=== PATIENT | male | born 1985 | race Caucasian/White ===

== ENCOUNTER 2017-07-05 21:59 | Emergency (ER) | payer SELFPAY ==
[~2017-07-05] VITALS: Ht 172.7 cm; Wt 61.7 kg
[2017-07-05 22:13] VITALS: BP 133/78
--- NOTE | 2017-07-06 01:11 | NUR ---
PATIENT LEFT [facility]
== END 2017-07-06 01:13 | disposition left against medical advice (07) ==
LOC: ER 22:05
DX: Z53.21 Procedure and treatment not carried out due to patient leaving prior to being seen by health care provider (principal)
CPT/HCPCS: A4606; Z7610

== ENCOUNTER 2017-07-06 08:57 | Emergency (ER) | payer SELFPAY ==
[~2017-07-06] VITALS: Ht 172.7 cm; Wt 60.8 kg
[2017-07-06 09:01] VITALS: BP 133/78
== END 2017-07-06 10:10 | disposition home or self-care (01) ==
LOC: ER 08:59
DX: S61.200A Unspecified open wound of right index finger without damage to nail, initial encounter (principal); L03.011 Cellulitis of right finger; W25.XXXA Contact with sharp glass, initial encounter; Y93.89 Activity, other specified; Y92.89 Other specified places as the place of occurrence of the external cause; Y99.8 Other external cause status
CPT/HCPCS: 73130-TC; A4606; Z7610